=== PATIENT | male | born 1980 | race American Indian/Alaskan Native ===

== ENCOUNTER 2018-07-19 06:15 | Emergency (ER) | payer MEDICARE, OTHER ==
[2018-07-19] MEDS ORDERED: ZITHROMAX PO ONE (08:14)
[2018-07-19] MEDS ORDERED: ROBITUSSIN PO ONE (08:14)
--- NOTE | 2018-07-19 08:17 | Emergency Department Report ---
Minor Respiratory - HPI Chief Complaint: Upper Respiratory Infection Stated Complaint: CHEST PAIN COUGH Time Seen by Provider: 07/19/18 07:56 Duration: 4 Days Pain Location: Chest Severity: moderate Minor Respiratory: Yes Able to Tolerate Fluids, Yes Cough, Yes Chest Pain (with coughing), No Rhinorrhea, No Sore Throat, No Ear Pain, No Sick Contacts, No Hemoptysis, No Shortness of Breath, No Fever Other History: Patient is a 38-year-old male presents ED complaining of chest pain worsening with coughing for the past 4 days. Patient states he was seen in urgent care and was given some steroids with no improvement. Patient states he is able to sleep for intermittent nonstop coughing. Patient denies any history of asthma. 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 - Social History Smoking Status: Never Smoker Substance Use Type: None - Medications Home Medications: Home Medications Medication Instructions Recorded Confirmed Last Taken Type Mirtazapine [Remeron] 15 mg PO QHS 03/20/13 04/01/13 03/31/13 22:00 History buPROPion XL [Wellbutrin Xl] 150 mg PO QAM 03/20/13 04/01/13 04/01/13 08:00 History busPIRone [Buspar] 10 mg PO BID 03/20/13 04/01/13 03/31/13 20:00 History PARoxetine [Paxil] 20 mg PO DAILY 04/01/13 04/01/13 04/01/13 08:00 History oxyCODONE /ACETAMINOPHEN [Percocet 1 tab PO Q6HR PRN #56 tablet 10/31/14 Unknown Rx 5/325] Azithromycin [Zithromax TAB] 500 mg PO QDAY #6 tablet 07/19/18 Unknown Rx Benzonatate [Tessalon Perles] 100 mg PO Q8HR #20 capsule 07/19/18 Unknown Rx Ibuprofen [Motrin] 800 mg PO Q8HR #30 tablet 07/19/18 Unknown Rx guaiFENesin/CODEINE [Robitussin AC] 10 ml PO TID #80 ml 07/19/18 Unknown Rx Minor Respiratory Exam - Exam General: Vital signs noted. No distress. Alert and acting appropriately. HEENT: Yes Moist Mucous Membranes, No Pharyngeal Erythema, No Pharyngeal Exudates, No Rhinorrhea, No Conjuctival Injection, No Frontal Tenderness, No Maxillary Tenderness Ear: Neither TM Bulge, Neither TM Erythema, Neither EAC Pain, Neither EAC Discharge Neck: Yes Supple, No Adenopathy Lungs: Yes Good Air Exchange, No Wheezes, No Ronchi, No Stridor, No Cough, No Labored Respirations, No Retractions, No Use of Accessory Muscles, No Other Abnormal Lung Sounds Heart: Yes Regular, No Murmur Abdomen: Yes Normal Bowel Sounds, No Tenderness, No Peritoneal Signs Skin: No Rash, No Edema Neurologic: Alert and oriented, no deficits. Musculoskeletal: Unremarkable. ED Course Vital Signs 07/19/18 06:20 Temperature 97.9 F Pulse Rate 79 Respiratory 20 Rate Blood Pressure 142/91 ED Medical Decision Making - Radiology Data Radiology results: report reviewed, image reviewed PROCEDURE: XR CHEST ROUTINE 2V TECHNIQUE: Chest 2 views HISTORY: cough COMPARISONS: FINDINGS: Cardiac and mediastinal contours are unremarkable. No focal pulmonary infiltrate identified. No pleural fluid collection seen. Pulmonary vasculature is unremarkable. IMPRESSION: Negative two-view chest. This document is electronically signed by David Watts MD., July 19 2018 07:13:01 PM ET Transcribed By: JUAN Dictated By: SHAKA WATTS MD Electronically Authenticated By: SHAKA WATTS MD Signed Date/Time: 07/19/181914 - Medical Decision Making 38-year-old male presents with respiratory symptoms Chest x-ray taken. reported above Fever resolved no fever during the ED stay. Discussed with the patient symptomatic relief with [id number] medications. Discussed continue Tylenol and Motrin as needed for fever and pain. Discussed increase fluids and diet intake. Discussed rest much needed. Discussed daily vitamin C for immune booster. Discussed follow-up with career development coordinator/teacher in 3-5 days. Patient verbally states he understands and will comply the following instructions and follow-up Vital signs stable. Patient is in no acute distress Critical care attestation.: If time is entered above; I have spent that time in minutes in the direct care of this critically ill patient, excluding procedure time. ED Disposition Clinical Impression: Bronchitis, Upper respiratory infection Disposition: [id number] TO HOME OR SELFCARE Is pt being admited?: No Does the pt Need Aspirin: No Condition: Stable Instructions: Upper Respiratory Infection (ED), Acute Bronchitis (ED) Additional Instructions: Make sure to follow up with the primary care physician as discussed. Take all your medications as you've been prescribed. If you have any worsening symptoms or develop new symptoms please return to ED immediately.e Prescriptions: Ibuprofen [Motrin] 800 mg PO Q8HR #30 tablet guaiFENesin/CODEINE [Robitussin AC] 10 ml PO TID #80 ml Benzonatate [Tessalon Perles] 100 mg PO Q8HR #20 capsule Azithromycin [Zithromax TAB] 500 mg PO QDAY #6 tablet Referrals: PRIMARY CARE, [Referring] - 3-5 Days Forms: Work/School Release Form(ED) Time of Disposition: 08:37
[2018-07-19 09:05] VITALS: BP 136/88
--- NOTE | 2018-07-19 19:15 | XRay Report ---
PROCEDURE: XR CHEST ROUTINE 2V TECHNIQUE: Chest 2 views HISTORY: cough COMPARISONS: FINDINGS: Cardiac and mediastinal contours are unremarkable. No focal pulmonary infiltrate identified. No pleur al fluid collection seen. Pulmonary vasculature is unremarkable. IMPRESSION: Negative two-view chest. This document is electronically signed by David Puckett MD., July 19 2018 07:13:01 PM ET
== END 2018-07-19 09:04 | disposition home or self-care (01) ==
LOC: ED 06:15
DX: J40 Bronchitis, not specified as acute or chronic (principal); J06.9 Acute upper respiratory infection, unspecified; I10 Essential (primary) hypertension; F31.9 Bipolar disorder, unspecified
CPT/HCPCS: 71046